=== PATIENT | female | born 1945 | race Caucasian/White ===

== ENCOUNTER 2017-11-12 13:34 | Inpatient (IN) | payer OTHER, MEDICAID ==
[~2017-11-12] VITALS: Ht 165.1 cm; Wt 133.4 kg
[~2017-11-12 13:34] MED LIST: DILTIAZEM HCL 60 MG TABLET PO SCH
[2017-11-12] MEDS ORDERED: FUROSEMIDE (13:46)
[2017-11-12] MEDS ORDERED: LIPITOR (13:46)
[2017-11-12] MEDS ORDERED: CARVEDILOL (13:46)
[2017-11-12] MEDS ORDERED: AMLODIPINE (13:46)
[2017-11-12] MEDS ORDERED: JANUVIA (13:46)
[2017-11-12] MEDS ORDERED: DILTIAZEM HCL 25 MG IV ONE ×2 (14:10→14:37)
[2017-11-12] MEDS ORDERED: DILTIAZEM HCL 25 MG IV IV ONE ×2 (14:15→14:30)
[2017-11-12 14:22] LABS: BASOPHILS % (AUTO) 0.3 % (0.0-2.0); EOSINOPHILS # (AUTO) 0.1 K/uL (0.0-0.7); EOSINOPHILS % (AUTO) 0.6 % (0.0-7.0); HEMATOCRIT 37.4 % (31.2-41.9); HEMOGLOBIN 12.5 g/dL (10.9-14.3); LYMPHOCYTES # (AUTO) 2.4 K/uL (20.0-40.0); LYMPHOCYTES % (AUTO) 20.6 % (20.5-51.5); MEAN CORPUSCULAR HEMOGLOBIN 29.8 uug (24.7-32.8); MEAN CORPUSCULAR HGB CONC 34 g/dL (32.3-35.6); MEAN CORPUSCULAR VOLUME 88.7 fL (75.5-95.3); MONOCYTES # (AUTO) 0.6 K/uL (2.0-10.0); MONOCYTES % (AUTO) 5.2 % (0.0-11.0); NEUTROPHILS # (AUTO) 8.5 K/uL (1.8-8.9); NEUTROPHILS % (AUTO) 73.3 % (38.5-71.5); PLATELET COUNT (AUTO) 244 K/uL (179-408); RED BLOOD CELL COUNT(AUTO) 4.21 MIL/uL (3.63-4.92); WHITE BLOOD COUNT (AUTO) 11.6 K/uL (3.8-11.8)
[2017-11-12 14:44] LABS: BILIRUBIN,DIRECT 0.1 mg/dL (0.0-0.2); BILIRUBIN,TOTAL 0.4 mg/dL (0.2-1.0); TOTAL PROTEIN, SERUM 7.3 g/dL (6.4-8.2)
[2017-11-12] MEDS ORDERED: FUROSEMIDE 20 MG/2 ML VIAL IV ONE (15:15)
[2017-11-12] MEDS ORDERED: POT CHLORIDE/POT BICARB/CIT AC 25 MEQ TABLET.EFF PO ONE (15:15)
[2017-11-12] MEDS ORDERED: FUROSEMIDE 20 MG/2 ML VIAL ONE (15:22)
[2017-11-12] MEDS ORDERED: POTASSIUM BICARBONATE/CIT AC 25 MEQ TABLET.EFF ONE (15:22)
[2017-11-12] MEDS ORDERED: HYDROCODONE/APAP 5-325MG TABLET PO PRN (18:30)
[2017-11-12] MEDS ORDERED: ACETAMINOPHEN 325 MG TABLET PO PRN (18:30)
[2017-11-12] MEDS ORDERED: MORPHINE SULFATE 2 MG/1 ML DISP.SYRIN IV PRN (18:30)
[2017-11-12] MEDS ORDERED: MAGNESIUM HYDROXIDE 30 ML LIQUID UDC PO PRN (18:30)
[2017-11-12] MEDS ORDERED: INSULIN REGULAR, HUMAN 300 UNIT/3 ML VIAL SQ PRN (18:30)
[2017-11-12] MEDS ORDERED: DEXTROSE 50% 50 ML DISP.SYRIN IV PRN (18:30)
[2017-11-12] MEDS ORDERED: ZOLPIDEM 5 MG TABLET PO PRN (18:30)
[2017-11-12] MEDS ORDERED: INSULIN REGULAR, HUMAN 300 UNITS/3 ML VIAL SQ PRN (18:30)
[2017-11-12] MEDS ORDERED: MORPHINE SULFATE 4 MG/1 ML DISP.SYRIN IV PRN (18:45)
[2017-11-12] MEDS: MAGNESIUM SULFATE/D5W 100 ML IV SCH ×2 (18:53→20:00)
[2017-11-12] MEDS ORDERED: RIVAROXABAN 10 MG TABLET PO SCH (19:00)
[2017-11-12 19:34] VITALS: BP 119/68
[2017-11-12] MEDS ORDERED: DILTIAZEM HCL 25 MG IV IV STA (19:41)
[2017-11-12] MEDS ORDERED: DILTIAZEM HCL 60 MG TABLET PO STA (19:41)
[2017-11-12] MEDS: DOCUSATE SODIUM 100 MG CAPSULE PO SCH (20:00)
[2017-11-12] MEDS ORDERED: RIVAROXABAN 15 MG TABLET PO SCH (20:00)
[2017-11-12] MEDS: ATORVASTATIN 20 MG TABLET PO SCH (20:00)
[2017-11-12] MEDS ORDERED: CARV12.5 PO (20:16)
[2017-11-12] MEDS ORDERED: AMLO5TAB2 PO (20:16)
[2017-11-12] MEDS: FUROSEMIDE 20 MG/2 ML VIAL IV SCH (20:17)
[2017-11-12] MEDS ORDERED: ATOR40TA PO (20:19)
[2017-11-12] MEDS ORDERED: SITA50TA PO (20:19)
[2017-11-12] MEDS ORDERED: OMEP20CA10 PO (20:20)
[2017-11-12] MEDS ORDERED: WARF4TAB72 PO (20:21)
[2017-11-12 20:33] VITALS: BP 119/68
[2017-11-12] MEDS ORDERED: BLOOD SUGAR DIAGNOSTIC 1 EACH STRIP VI SCH (21:00)
[2017-11-12 21:03] VITALS: BP 130/70
[2017-11-13] VITALS (7 sets, daily range): BP systolic 112–170; BP diastolic 58–91
[2017-11-13] MEDS ORDERED: ENALAPRILAT DIHYDRATE INJ 2.5 MG in IV NORMAL SALINE 50 ML IV PRN (00:15)
[2017-11-13] MEDS ORDERED: DEXTROSE 50% 50 ML DISP.SYRIN IV PRN (00:30)
[2017-11-13] MEDS: PANTOPRAZOLE SODIUM 40 MG TABLET.DR PO SCH (05:54)
[2017-11-13] MEDS: DILTIAZEM HCL 60 MG TABLET PO SCH ×3 (05:54→22:12)
[2017-11-13] MEDS: BLOOD SUGAR DIAGNOSTIC 1 EACH STRIP VI SCH ×5 (06:45→20:56)
[2017-11-13 06:55] LABS: BASOPHILS % (AUTO) 0.3 % (0.0-2.0); EOSINOPHILS # (AUTO) 0.1 K/uL (0.0-0.7); EOSINOPHILS % (AUTO) 0.9 % (0.0-7.0); HEMATOCRIT 38.8 % (31.2-41.9); HEMOGLOBIN 12.8 g/dL (10.9-14.3); LYMPHOCYTES # (AUTO) 3.1 K/uL (20.0-40.0); LYMPHOCYTES % (AUTO) 29.3 % (20.5-51.5); MEAN CORPUSCULAR HEMOGLOBIN 29.6 uug (24.7-32.8); MEAN CORPUSCULAR HGB CONC 33 g/dL (32.3-35.6); MEAN CORPUSCULAR VOLUME 89.7 fL (75.5-95.3); MONOCYTES # (AUTO) 0.7 K/uL (2.0-10.0); MONOCYTES % (AUTO) 6.6 % (0.0-11.0); NEUTROPHILS # (AUTO) 6.8 K/uL (1.8-8.9); NEUTROPHILS % (AUTO) 62.9 % (38.5-71.5); PLATELET COUNT (AUTO) 245 K/uL (179-408); RED BLOOD CELL COUNT(AUTO) 4.32 MIL/uL (3.63-4.92); WHITE BLOOD COUNT (AUTO) 10.7 K/uL (3.8-11.8)
[2017-11-13 07:08] LABS: BILIRUBIN,TOTAL 0.7 mg/dL (0.2-1.0); CREATININE 0.8 mg/dL (0.6-1.3); PHOSPHOROUS 2.9 mg/dL (2.5-4.9); POTASSIUM 3.1 mmol/L (3.5-5.1); TOTAL PROTEIN, SERUM 7.2 g/dL (6.4-8.2)
[2017-11-13] MEDS: FUROSEMIDE 20 MG/2 ML VIAL IV SCH ×2 (08:15→20:53)
[2017-11-13] MEDS: LINAGLIPTIN 5 MG TABLET PO SCH (08:22)
[2017-11-13] MEDS: INSULIN REGULAR, HUMAN 300 UNIT/3 ML VIAL SQ PRN ×3 (08:22→20:58)
[2017-11-13] MEDS ORDERED: SITAGLIPTIN PHOSPHATE 50 MG TABLET PO SCH (09:00)
[2017-11-13] MEDS ORDERED: POTASSIUM CHLORIDE 20 MEQ TAB.PRT.SR PO ONE (13:00)
[2017-11-13] MEDS: DOCUSATE SODIUM 100 MG CAPSULE PO SCH (20:51)
[2017-11-13] MEDS: ATORVASTATIN 20 MG TABLET PO SCH (20:51)
[2017-11-13] MEDS: METOPROLOL TARTRATE 25 MG TABLET PO SCH (20:52)
[2017-11-14] VITALS (7 sets, daily range): BP systolic 123–161; BP diastolic 67–92
[2017-11-14] MEDS: DILTIAZEM HCL 60 MG TABLET PO SCH (06:00)
[2017-11-14] MEDS: PANTOPRAZOLE SODIUM 40 MG TABLET.DR PO SCH (06:00)
[2017-11-14] MEDS: BLOOD SUGAR DIAGNOSTIC 1 EACH STRIP VI SCH ×4 (06:38→20:20)
[2017-11-14] MEDS: INSULIN REGULAR, HUMAN 300 UNIT/3 ML VIAL SQ PRN ×4 (08:09→20:23)
[2017-11-14] MEDS: FUROSEMIDE 20 MG/2 ML VIAL IV SCH ×3 (08:11→20:21)
[2017-11-14] MEDS: LINAGLIPTIN 5 MG TABLET PO SCH (08:11)
[2017-11-14] MEDS: METOPROLOL TARTRATE 25 MG TABLET PO SCH (08:11)
[2017-11-14 09:10] LABS: PHOSPHOROUS 3.2 mg/dL (2.5-4.9); POTASSIUM 3.8 mmol/L (3.5-5.1)
[2017-11-14] MEDS ORDERED: POTASSIUM CHLORIDE 20 MEQ TAB.PRT.SR PO ONE (11:45)
[2017-11-14] MEDS ORDERED: DILTIAZEM HCL CD 240 MG CAP.SR.24H PO SCH (11:45)
[2017-11-14] MEDS: METOPROLOL TARTRATE 50 MG TABLET PO SCH (20:21)
[2017-11-14] MEDS: DOCUSATE SODIUM 100 MG CAPSULE PO SCH (20:21)
[2017-11-14] MEDS: ATORVASTATIN 20 MG TABLET PO SCH (20:21)
[2017-11-14] MEDS ORDERED: METOPROLOL TARTRATE 25 MG TABLET PO SCH (21:00)
[2017-11-15] VITALS: BP 130/77
[2017-11-15 04:00] VITALS: BP 118/74
[2017-11-15] MEDS: PANTOPRAZOLE SODIUM 40 MG TABLET.DR PO SCH (06:17)
[2017-11-15] MEDS: BLOOD SUGAR DIAGNOSTIC 1 EACH STRIP VI SCH ×2 (06:36→12:20)
[2017-11-15] MEDS: LINAGLIPTIN 5 MG TABLET PO SCH (08:33)
[2017-11-15] MEDS: METOPROLOL TARTRATE 50 MG TABLET PO SCH (08:34)
[2017-11-15] MEDS: INSULIN REGULAR, HUMAN 300 UNIT/3 ML VIAL SQ PRN ×2 (08:38→12:18)
[2017-11-15] MEDS ORDERED: LINAGLIPTIN 5 MG TABLET PO SCH (09:00)
[2017-11-15] MEDS ORDERED: DILTIAZEM HCL CD 180 MG CAP.SR.24H PO SCH (09:00)
[2017-11-15] MEDS ORDERED: DILTIAZEM HCL CD 240 MG CAP.SR.24H PO SCH (09:00)
[2017-11-15] MEDS ORDERED: FUROSEMIDE 40 MG TABLET PO SCH (09:00)
[2017-11-15 11:44] VITALS: BP 119/74
[2017-11-15] MEDS ORDERED: WARFARIN SODIUM 5 MG TABLET PO ONE (12:17)
[2017-11-15] MEDS ORDERED: ATOR20TA PO (12:37)
[2017-11-15] MEDS ORDERED: FURO-152 PO (12:37)
[2017-11-15] MEDS ORDERED: DILT180C66 PO (12:37)
[2017-11-15] MEDS ORDERED: FURO-151 PO (12:37)
[2017-11-15] MEDS ORDERED: POTA20TA10 PO (12:43)
[2017-11-15 15:40] VITALS: BP 119/74
[2017-11-16] MEDS ORDERED: COUMADIN VARIABLE DOSE REMINDE XX SCH (17:00)
== END 2017-11-15 14:45 | disposition home or self-care (01) | DRG 308 ==
LOC: ER 13:34 → TELE 15:45 → MED 11-15 09:20
PROVIDERS: ADMIT Internal Medicine; ATTEND Internal Medicine
DX: I48.2 Chronic atrial fibrillation (principal); I50.33 Acute on chronic diastolic (congestive) heart failure; E44.0 Moderate protein-calorie malnutrition; D68.59 Other primary thrombophilia; E11.65 Type 2 diabetes mellitus with hyperglycemia; E66.01 Morbid (severe) obesity due to excess calories; E83.42 Hypomagnesemia; Z68.42 Body mass index [BMI] 45.0-49.9, adult; Z86.74 Personal history of sudden cardiac arrest; I11.0 Hypertensive heart disease with heart failure; Z79.01 Long term (current) use of anticoagulants; Z79.84 Long term (current) use of oral hypoglycemic drugs; Z95.810 Presence of automatic (implantable) cardiac defibrillator; Z90.710 Acquired absence of both cervix and uterus; I34.0 Nonrheumatic mitral (valve) insufficiency; E87.6 Hypokalemia; E78.5 Hyperlipidemia, unspecified; Z90.49 Acquired absence of other specified parts of digestive tract
CPT/HCPCS: 36415; 70030-TC; 71045; 83735; 84100; 84443; 85025; 85610; 85730; 93005; 93307; A4663; J1815; J1940; J3475; J3490; J7040

== ENCOUNTER 2022-02-17 00:54 | Inpatient (IN) | payer OTHER ==
[~2022-02-17] VITALS: Ht 165.1 cm; Wt 99.8 kg
[~2022-02-17 00:54] MED LIST changes: +ATOR20TA PO; +CARV12.5 PO; +DILT180C66 PO; -DILTIAZEM HCL 60 MG TABLET PO SCH; +FURO-151 PO; +FURO-152 PO; +OMEP20CA15 PO; +POTA-194 PO; +SITA50TA PO; +WARF4TAB72 PO
[2022-02-17] MEDS ORDERED: FUROSEMIDE 20 MG/2 ML VIAL IVP ONE (01:00)
[2022-02-17] MEDS ORDERED: NITROGLYCERIN OINT 1 GM PACKET TP ONE ×2 (01:00→01:22)
[2022-02-17 01:22] LABS: HEMATOCRIT 33.1 % (31.2-41.9); MEAN CORPUSCULAR HEMOGLOBIN 30.7 uug (24.7-32.8); MEAN CORPUSCULAR VOLUME 93.3 fL (75.5-95.3); PLATELET COUNT (AUTO) 244 K/uL (179-408)
[2022-02-17] MEDS ORDERED: FUROSEMIDE 40 MG/4 ML VIAL ONE (01:22)
[2022-02-17 01:26] LABS: CARBON DIOXIDE 29 mmol/L (21-32); CHLORIDE 102 mmol/L (98-107); CREATININE 2.2 mg/dL (0.6-1.3); GLUCOSE 214 mg/dL (74-106); POTASSIUM 3.4 mmol/L (3.5-5.1); UREA NITROGEN, BLOOD 43 mg/dL (7-18)
[2022-02-17 01:34] LABS: ALANINE AMINOTRANSFERASE 41 U/L (14-59); ALKALINE PHOSPHATASE 90 U/L (50-136); ASPARTATE AMINOTRANSFERASE 36 U/L (15-37); BILIRUBIN,DIRECT 0.3 mg/dL (0.0-0.2); BILIRUBIN,TOTAL 0.9 mg/dL (0.2-1.0); TOTAL PROTEIN, SERUM 7.2 g/dL (6.4-8.2)
[2022-02-17] MEDS ORDERED: ASPIRIN 81 MG TAB.CHEW ONE (01:44)
[2022-02-17] MEDS ORDERED: POTASSIUM BICARBONATE/CIT AC 25 MEQ TABLET.EFF PO ONE (01:45)
[2022-02-17] MEDS ORDERED: ENOXAPARIN SODIUM 100 MG/ML DISP.SYRIN SQ ONE ×2 (01:45)
[2022-02-17] MEDS ORDERED: ENOXAPARIN SODIUM 30 MG/0.3 ML DISP.SYRIN ONE (01:45)
[2022-02-17] MEDS ORDERED: ASPIRIN 81 MG TAB.CHEW PO ONE (01:45)
[2022-02-17] MEDS ORDERED: POTASSIUM BICARBONATE/CIT AC 25 MEQ TABLET.EFF ONE (01:46)
--- NOTE | 2022-02-17 02:00 | NUR ---
pt states she takes eliquis 2 times daily. lovenox injection has been cancelled per MD order.
[2022-02-17] MEDS ORDERED: MAGNESIUM SULFATE/D5W 100 ML IV SCH (02:30)
[2022-02-17] MEDS ORDERED: MAGNESIUM SULFATE/D5W 100 ML ONE (02:31)
[2022-02-17] MEDS ORDERED: LORAZEPAM 0.5 MG TABLET ONE (03:09)
[2022-02-17] MEDS ORDERED: LORAZEPAM 0.5 MG TABLET PO ONE (03:15)
--- NOTE | 2022-02-17 04:46 | NUR ---
Called [facility] for panel call.
[2022-02-17] MEDS ORDERED: FUROSEMIDE 40 MG/4 ML VIAL IV SCH (05:00)
[2022-02-17] MEDS ORDERED: DEXTROSE 50% 50 ML DISP.SYRIN IV PRN (05:00)
[2022-02-17] MEDS ORDERED: MORPHINE SULFATE 2 MG/1 ML DISP.SYRIN IV PRN (05:00)
[2022-02-17] MEDS ORDERED: ALBUTEROL SULFATE 8 GM HFA.AER.AD IH PRN (05:00)
--- NOTE | 2022-02-17 06:27 | NUR ---
Report given to Hany RODGERS.
--- NOTE | 2022-02-17 07:04 | NUR ---
[facility]
--- NOTE | 2022-02-17 07:45 | NUR ---
0705 RECEIVED PATIENT FROM ED. 76 Y/O F. AOX4. CHIEF COMPLAIN FROM ED IS SOB. ADMITTING DIAGNOSIS IS CHF. ON 2L/MIN NC SATURATING AT 95-99%. RIGHT IV 20G AC PATENT AND INTACT. PATIENT IS A LITTLE ANXIOUS BUT OTHERWISE IS OKAY. PATIENT CAN AMBULATE WITH ASSISTANCE. RIGHT LEG WEAKNESS NOTED. PATIENT HAVE LEFT AICD.
[2022-02-17] MEDS: ALBUTEROL SULFATE 2.5 MG/3 ML NEBU NEB PRN ×2 (07:51→12:53)
[2022-02-17] MEDS: BLOOD SUGAR DIAGNOSTIC 1 EACH STRIP VI SCH ×4 (08:00→20:33)
[2022-02-17] MEDS ORDERED: ENOXAPARIN SODIUM 120 MG/0.8 ML SYRINGE SQ ONE (08:00)
[2022-02-17 08:02] VITALS: BP 147/100
[2022-02-17] MEDS: FLUTICASONE/VILANTEROL 1 EACH BLST.W.DEV INH SCH (08:06)
[2022-02-17] MEDS: FUROSEMIDE 40 MG/4 ML VIAL IV SCH ×2 (08:06→20:27)
[2022-02-17] MEDS: INSULIN REGULAR, HUMAN 300 UNIT/3 ML VIAL SQ PRN ×2 (08:09→17:58)
--- NOTE | 2022-02-17 09:45 | NUR ---
Pt eating breakfast with HOB elevated. PT calling for help and stating " I have a canela stuck on my throat." Pt very anxious and hyperventilating. Instructed pt to have her chin down and swallow some water. after intervention pt states that the canela "went down." Pt more calm afterwards.
[2022-02-17 12:00] VITALS: BP 152/108
[2022-02-17] MEDS ORDERED: CARV25TA PO (13:25)
[2022-02-17] MEDS ORDERED: APIX5TAB PO (13:25)
[2022-02-17] MEDS ORDERED: FURO20TA4 PO (13:51)
[2022-02-17] MEDS ORDERED: AMLO10TA59 PO (13:51)
[2022-02-17] MEDS ORDERED: ASPI-1420 PO (13:51)
[2022-02-17] MEDS ORDERED: BUME1TAB8 PO (13:51)
[2022-02-17] MEDS ORDERED: SITA50TA PO (13:51)
[2022-02-17] MEDS ORDERED: LORA-259 PO (13:55)
[2022-02-17] MEDS ORDERED: AMIO200T5 PO (15:40)
[2022-02-17 16:00] VITALS: BP 125/83
[2022-02-17] MEDS: ONDANSETRON 4 MG/2 ML VIAL IV PRN ×2 (17:42→18:17)
[2022-02-17 20:00] VITALS: BP 140/73
[2022-02-17] MEDS: INSULIN REGULAR, HUMAN 300 UNITS/3 ML VIAL SQ PRN (20:35)
--- NOTE | 2022-02-18 00:03 | NUR ---
Patient noted with elevated BP, and showing lots of anxiety, notify Josef Mock with order of ativan 1mg po q8 prn for anxiety.
[2022-02-18] MEDS ORDERED: LORAZEPAM 1 MG TABLET PO PRN (00:15)
--- NOTE | 2022-02-18 00:28 | NUR ---
Patient refused the full face CPAP, prefer the CPAP from home, explained that we dont have the same kind of CPAP, will notify [employer] in am, Patient agreed to have CPAP start tomorrow.
[2022-02-18 04:18] VITALS: BP 142/91
[2022-02-18] MEDS: BLOOD SUGAR DIAGNOSTIC 1 EACH STRIP VI SCH ×4 (06:09→20:52)
[2022-02-18 06:15] LABS: HEMATOCRIT 32.9 % (31.2-41.9); MEAN CORPUSCULAR HEMOGLOBIN 30.9 uug (24.7-32.8); MEAN CORPUSCULAR VOLUME 92.7 fL (75.5-95.3); PLATELET COUNT (AUTO) 213 K/uL (179-408)
--- NOTE | 2022-02-18 06:16 | NUR ---
Patient alert oriented, no sob no chest pain, tele monitor A fib, no complain of pain, BP was 147/105, sat wnl, no complain of pain, asymptomatic, patient has episode of anxiety Ativan 1mg po effective current BP 142/91, voided moderate amount of urine, yellow color urine, cont to monitor.
[2022-02-18 06:47] LABS: ALANINE AMINOTRANSFERASE 30 U/L (14-59); ALKALINE PHOSPHATASE 86 U/L (50-136); ASPARTATE AMINOTRANSFERASE 14 U/L (15-37); BILIRUBIN,TOTAL 1.1 mg/dL (0.2-1.0); CARBON DIOXIDE 33 mmol/L (21-32); CHLORIDE 102 mmol/L (98-107); CREATININE 1.9 mg/dL (0.6-1.3); GLUCOSE 103 mg/dL (74-106); PHOSPHOROUS 4.4 mg/dL (2.5-4.9); POTASSIUM 3.3 mmol/L (3.5-5.1); UREA NITROGEN, BLOOD 44 mg/dL (7-18)
[2022-02-18 07:41] VITALS: BP 149/102
--- NOTE | 2022-02-18 08:00 | NUR ---
RECEIVED PATIENT ON BED RESTING COMFORTABLY. NO COMPLAIN OF PAIN. AFIB ON TELE. 2L/MIN NC 98% SAT. AO X4. PATIENT VERBALIZE " SHE WAS FEELING MORE BETTER THAN YESTERDAY". NO SOB NOTED.
[2022-02-18] MEDS: FUROSEMIDE 40 MG/4 ML VIAL IV SCH (08:26)
[2022-02-18] MEDS: APIXABAN 5 MG TABLET PO SCH ×2 (08:35→20:49)
[2022-02-18] MEDS ORDERED: ENOXAPARIN SODIUM 120 MG/0.8 ML SYRINGE SQ SCH (09:00)
[2022-02-18] MEDS: FLUTICASONE/VILANTEROL 1 EACH BLST.W.DEV INH SCH (09:54)
[2022-02-18] MEDS ORDERED: POTASSIUM CHLORIDE 10 MEQ TAB.PRT.SR PO ONE (10:30)
[2022-02-18] MEDS: INSULIN REGULAR, HUMAN 300 UNIT/3 ML VIAL SQ PRN ×2 (11:42→16:29)
--- NOTE | 2022-02-18 11:50 | NUR ---
PATIENT ACCUCHECK 288. GAVE 9 UNITS OF INSULIN PER SLIDING SCALE.
[2022-02-18] MEDS: AMIODARONE HCL 200 MG TABLET PO SCH (13:57)
[2022-02-18] MEDS ORDERED: CARVEDILOL 25 MG TABLET PO ONE (14:00)
--- NOTE | 2022-02-18 14:04 | NUR ---
GAVED INITIAL DOSE OF COREG AT 1404
[2022-02-18] MEDS: CARVEDILOL 25 MG TABLET PO SCH (17:00)
--- NOTE | 2022-02-18 18:29 | NUR ---
PATIENT IS SLEEPING AND RESTING WELL. NO EPISODE OF ANXIETY NOTED. STIIL ON 2L/MIN NC.
[2022-02-18 19:00] VITALS: BP 99/49
--- NOTE | 2022-02-18 19:30 | NUR ---
Received patient in bed, alert oriented, no sob no chest pain, tele monitor V pacing, no complain of pain, on 2 liters oxygen sat wnl, cont to monitor.
[2022-02-18] MEDS: INSULIN REGULAR, HUMAN 300 UNITS/3 ML VIAL SQ PRN (20:50)
[2022-02-19] VITALS: BP 134/67
[2022-02-19 04:26] VITALS: BP 133/82
--- NOTE | 2022-02-19 06:14 | NUR ---
Patient awake, no sob no chest pain, tele monitor v pacing and A fib no complain of pain, BP stable, cont to monitor.
[2022-02-19] MEDS: BLOOD SUGAR DIAGNOSTIC 1 EACH STRIP VI SCH ×4 (06:21→20:45)
[2022-02-19 07:08] LABS: HEMATOCRIT 31.9 % (31.2-41.9); MEAN CORPUSCULAR HEMOGLOBIN 31.6 uug (24.7-32.8); MEAN CORPUSCULAR VOLUME 93.3 fL (75.5-95.3); PLATELET COUNT (AUTO) 211 K/uL (179-408)
[2022-02-19 07:34] LABS: THYROID STIMULATING HORMONE 1.503 mIU/mL (0.358-3.740)
[2022-02-19 07:35] LABS: ALANINE AMINOTRANSFERASE 30 U/L (14-59); ALKALINE PHOSPHATASE 79 U/L (50-136); ASPARTATE AMINOTRANSFERASE 19 U/L (15-37); BILIRUBIN,TOTAL 0.9 mg/dL (0.2-1.0); CARBON DIOXIDE 35 mmol/L (21-32); CHLORIDE 102 mmol/L (98-107); CHOLESTEROL 154 mg/dL (<200); CREATININE 2.1 mg/dL (0.6-1.3); GLUCOSE 117 mg/dL (74-106); HDL CHOLESTEROL 49 mg/dL (40-60); MAGNESIUM 2.1 mg/dL (1.8-2.4); PHOSPHOROUS 4.4 mg/dL (2.5-4.9); POTASSIUM 4.3 mmol/L (3.5-5.1); TOTAL PROTEIN, SERUM 6.9 g/dL (6.4-8.2); TRIGLYCERIDES 65 MG/DL (30-150); UREA NITROGEN, BLOOD 45 mg/dL (7-18)
[2022-02-19 08:00] VITALS: BP 122/72
[2022-02-19] MEDS: FLUTICASONE/VILANTEROL 1 EACH BLST.W.DEV INH SCH (08:48)
[2022-02-19] MEDS: ASPIRIN EC 81 MG TABLET.DR PO SCH (08:59)
[2022-02-19] MEDS: AMIODARONE HCL 200 MG TABLET PO SCH (08:59)
[2022-02-19] MEDS: CARVEDILOL 25 MG TABLET PO SCH ×2 (08:59→17:29)
[2022-02-19] MEDS ORDERED: FUROSEMIDE 40 MG/4 ML VIAL IV SCH (09:00)
[2022-02-19] MEDS: APIXABAN 5 MG TABLET PO SCH ×2 (09:05→20:45)
[2022-02-19 11:30] VITALS: BP 131/68
[2022-02-19] MEDS: INSULIN REGULAR, HUMAN 300 UNIT/3 ML VIAL SQ PRN ×2 (12:43→17:32)
[2022-02-19] MEDS: LORAZEPAM 1 MG TABLET PO PRN ×2 (14:52→23:48)
--- NOTE | 2022-02-19 14:56 | NUR ---
Received patient lying in bed,awake alert oriented, no chest pain, tele monitor A fib, no complain of pain, sat 99%,on O2 via N/C no complain of pain, asymptomatic, patient has episode of anxiety C/O saying I can't breath.HOB kept elevated Ativan 1mg PO given as ordered effective. voided moderate amount of urine, yellow color urine,with Pure wick in place . will continue to monitor closely. Safety measure in place bed in low position, bed alarm on, call light at reach .
[2022-02-19 16:00] VITALS: BP 132/76
[2022-02-19 20:00] VITALS: BP 120/66
--- NOTE | 2022-02-19 20:30 | NUR ---
Patient alert oriented, no sob no chest pain, tele monitor v pacing, a fib, no complain of pain, turn and reposition, call light within reach, cont to monitor.
--- NOTE | 2022-02-19 23:55 | NUR ---
Patient awake with episode of uneasy, anxiety unable to fall asleep, request ativan po for anxiety, with help after one hour, cont to monitor.
[2022-02-20] VITALS: BP 145/89
[2022-02-20 04:00] VITALS: BP 151/88
--- NOTE | 2022-02-20 04:27 | NUR ---
Patient alert, no complain of pain, kept clean and dry, no sob no chest pain, V pacing and A fib on tele, sat wnl, cont to monitor.
[2022-02-20] MEDS: BLOOD SUGAR DIAGNOSTIC 1 EACH STRIP VI SCH ×4 (05:29→21:45)
[2022-02-20 08:10] LABS: HEMATOCRIT 31.6 % (31.2-41.9); MEAN CORPUSCULAR HEMOGLOBIN 31.6 uug (24.7-32.8); MEAN CORPUSCULAR VOLUME 94.6 fL (75.5-95.3); PLATELET COUNT (AUTO) 196 K/uL (179-408)
[2022-02-20 08:16] LABS: ALANINE AMINOTRANSFERASE 26 U/L (14-59); ALKALINE PHOSPHATASE 78 U/L (50-136); ASPARTATE AMINOTRANSFERASE 15 U/L (15-37); BILIRUBIN,TOTAL 0.9 mg/dL (0.2-1.0); CARBON DIOXIDE 32 mmol/L (21-32); CHLORIDE 101 mmol/L (98-107); GLUCOSE 136 mg/dL (74-106); MAGNESIUM 2.1 mg/dL (1.8-2.4); PHOSPHOROUS 4.2 mg/dL (2.5-4.9); POTASSIUM 3.8 mmol/L (3.5-5.1); TOTAL PROTEIN, SERUM 6.9 g/dL (6.4-8.2); UREA NITROGEN, BLOOD 48 mg/dL (7-18)
[2022-02-20] MEDS: APIXABAN 5 MG TABLET PO SCH ×2 (09:05→20:19)
[2022-02-20] MEDS: ASPIRIN EC 81 MG TABLET.DR PO SCH (09:05)
[2022-02-20] MEDS: CARVEDILOL 25 MG TABLET PO SCH ×2 (09:11→17:13)
[2022-02-20] MEDS: AMIODARONE HCL 200 MG TABLET PO SCH (09:11)
[2022-02-20] MEDS: FLUTICASONE/VILANTEROL 1 EACH BLST.W.DEV INH SCH (09:30)
[2022-02-20] MEDS: INSULIN REGULAR, HUMAN 300 UNIT/3 ML VIAL SQ PRN ×3 (11:40→20:22)
[2022-02-20 12:00] VITALS: BP 132/84
[2022-02-20] MEDS: ALBUTEROL SULFATE 2.5 MG/3 ML NEBU NEB PRN ×3 (12:07→20:37)
[2022-02-20] MEDS: LORAZEPAM 1 MG TABLET PO PRN ×2 (14:28→21:45)
[2022-02-20 15:55] VITALS: BP 143/88
[2022-02-20 17:35] LABS: *BILIRUBIN,URIN NEGATIVE (NEGATIVE); *CLARITY,URINE CLEAR (CLEAR); *COLOR,URINE YELLOW (YELLOW); *KETONES,URINE NEGATIVE (NEGATIVE); *UROBILINOGEN,URINE 0.2 E.U./dl (NORMAL); LEUKOCYTE ESTERASE ,URINE NEGATIVE (NEGATIVE); NITRITE, URINE NEGATIVE (NEGATIVE); PH,URINE 5.5 (5.0-8.0); UGLUCOSE NEGATIVE (NEGATIVE)
[2022-02-20 17:41] LABS: *CREATININE,URINE 137.7 mg/dL (30-125); *URINE TOTAL PROTEIN RANDOM 160.8 mg/dL (<150/24HR)
[2022-02-20 17:44] LABS: *BLOOD, URINE TRACE (NEGATIVE)
[2022-02-20 18:27] LABS: BACTERIA,URINE NONE SEEN /HPF (NONE SEEN); RBC,URINE 0-3 /HPF (0-3); SQUAMOUS EPITHELIAL CELL,UR NONE SEEN /HPF (NONE SEEN)
[2022-02-20 18:29] LABS: WBC,URINE 0-3 /HPF (0-3)
[2022-02-20 20:00] VITALS: BP 130/83
[2022-02-20] MEDS: ACETAMINOPHEN 325 MG TABLET PO PRN (21:45)
[2022-02-21] VITALS: BP 134/91
[2022-02-21 04:00] VITALS: BP 165/101
[2022-02-21] MEDS: hydrALAZINE HCL 20 MG/1 ML VIAL IV PRN (04:29)
[2022-02-21] MEDS: LORAZEPAM 1 MG TABLET PO PRN (04:29)
[2022-02-21 06:00] VITALS: BP 145/65
--- NOTE | 2022-02-21 06:00 | NUR ---
Patient rested well in between care; periods of being very anxious and SOB; HHN given per RT and ativan given orally; will continue to monitor.
[2022-02-21 06:31] LABS: MEAN CORPUSCULAR HEMOGLOBIN 31.5 uug (24.7-32.8); MEAN CORPUSCULAR VOLUME 92.7 fL (75.5-95.3); PLATELET COUNT (AUTO) 198 K/uL (179-408)
[2022-02-21] MEDS: BLOOD SUGAR DIAGNOSTIC 1 EACH STRIP VI SCH ×4 (06:37→21:22)
[2022-02-21 06:51] LABS: CARBON DIOXIDE 31 mmol/L (21-32); CHLORIDE 100 mmol/L (98-107); CREATININE 1.9 mg/dL (0.6-1.3); GLUCOSE 119 mg/dL (74-106); MAGNESIUM 1.9 mg/dL (1.8-2.4); POTASSIUM 3.6 mmol/L (3.5-5.1); UREA NITROGEN, BLOOD 50 mg/dL (7-18)
[2022-02-21] MEDS: GLIMEPIRIDE 2 MG TABLET PO SCH (08:57)
[2022-02-21] MEDS: ASPIRIN EC 81 MG TABLET.DR PO SCH (08:58)
[2022-02-21] MEDS: APIXABAN 5 MG TABLET PO SCH ×2 (08:59→21:18)
[2022-02-21] MEDS: AMIODARONE HCL 200 MG TABLET PO SCH (08:59)
[2022-02-21] MEDS: FLUTICASONE/VILANTEROL 1 EACH BLST.W.DEV INH SCH (08:59)
[2022-02-21] MEDS: CARVEDILOL 25 MG TABLET PO SCH ×2 (08:59→16:22)
[2022-02-21] MEDS: FUROSEMIDE 40 MG/4 ML VIAL IV SCH ×2 (09:02→21:18)
[2022-02-21] MEDS: ACETAMINOPHEN 325 MG TABLET PO PRN (09:09)
[2022-02-21 11:03] VITALS: BP 124/65
[2022-02-21] MEDS: INSULIN REGULAR, HUMAN 300 UNIT/3 ML VIAL SQ PRN (11:26)
[2022-02-21 15:12] VITALS: BP 133/68
[2022-02-21] MEDS ORDERED: FLUT1BLS INH (15:30)
[2022-02-21] MEDS ORDERED: ALBU2.5V7 NEB (15:30)
[2022-02-21] MEDS ORDERED: ACET325T53 PO (15:30)
[2022-02-21] MEDS ORDERED: MULT-594 PO (15:30)
[2022-02-21] MEDS ORDERED: APIX5TAB PO (15:30)
[2022-02-21] MEDS ORDERED: AMLO-212 PO (15:30)
[2022-02-21] MEDS ORDERED: GLIM2TAB PO (15:30)
[2022-02-21] MEDS ORDERED: DOCU-141 PO (15:32)
[2022-02-21] MEDS ORDERED: POLY17PO4 PO (15:32)
--- NOTE | 2022-02-21 15:57 | NUR ---
Spoke to [facility] regarding patient's transfer. According to staff, patient has not been accepted. [facility] Staff to update Nawaf SALAZAR
--- NOTE | 2022-02-21 17:44 | NUR ---
Patient no longer to be discharged to [facility] due to no bed at facility. manager crisis notified.
[2022-02-21] MEDS: ALBUTEROL SULFATE 2.5 MG/3 ML NEBU NEB PRN (18:00)
--- NOTE | 2022-02-21 18:03 | NUR ---
Breathing treatment ordered. RT notified. Will endorse information to PM nurse.
--- NOTE | 2022-02-21 18:29 | NUR ---
Patient received care well throughout shift with no complaints of pain. Patient however having the need to defecate, but upon PT assessment, patient was unable to participate during today's therapy session. Bedside commode given to patient, and attempted to stand patient. Patient immediately stating they are dizzy, and refused patient from attempting any further. Patient notified to use diaper to prevent further injury. IV site intact and patent. Bed left in lowest position with call light within reach. Will endorse information to PM nurse.
[2022-02-21 20:00] VITALS: BP 127/85
[2022-02-21] MEDS ORDERED: MAGNESIUM HYDROXIDE 30 ML LIQUID UDC PO PRN (21:15)
[2022-02-21] MEDS: INSULIN REGULAR, HUMAN 300 UNITS/3 ML VIAL SQ PRN (21:22)
[2022-02-22] VITALS: BP 141/88
[2022-02-22 04:00] VITALS: BP 152/102
[2022-02-22 05:00] VITALS: BP 145/89
--- NOTE | 2022-02-22 05:08 | NUR ---
Patient rested well in between care; pt had a big BM; asssisted pt to BSC; needs attended; no c/o anxiety up to this time; will continue to monitor; continue plan of care.
[2022-02-22] MEDS: BLOOD SUGAR DIAGNOSTIC 1 EACH STRIP VI SCH ×4 (06:16→21:05)
[2022-02-22] MEDS: GLIMEPIRIDE 2 MG TABLET PO SCH (08:20)
[2022-02-22] MEDS: ASPIRIN EC 81 MG TABLET.DR PO SCH (08:20)
[2022-02-22] MEDS: FLUTICASONE/VILANTEROL 1 EACH BLST.W.DEV INH SCH (08:21)
[2022-02-22] MEDS: FUROSEMIDE 40 MG/4 ML VIAL IV SCH (08:21)
[2022-02-22] MEDS: APIXABAN 5 MG TABLET PO SCH ×2 (08:22→21:07)
[2022-02-22] MEDS: CARVEDILOL 25 MG TABLET PO SCH ×2 (08:24→16:07)
[2022-02-22] MEDS: AMIODARONE HCL 200 MG TABLET PO SCH (08:25)
[2022-02-22 08:40] LABS: HEMATOCRIT 32.5 % (31.2-41.9); MEAN CORPUSCULAR HEMOGLOBIN 32.4 uug (24.7-32.8); MEAN CORPUSCULAR VOLUME 93.2 fL (75.5-95.3); PLATELET COUNT (AUTO) 199 K/uL (179-408)
[2022-02-22 08:44] LABS: CARBON DIOXIDE 36 mmol/L (21-32); CHLORIDE 101 mmol/L (98-107); GLUCOSE 128 mg/dL (74-106); MAGNESIUM 2.4 mg/dL (1.8-2.4); POTASSIUM 3.7 mmol/L (3.5-5.1); UREA NITROGEN, BLOOD 56 mg/dL (7-18)
[2022-02-22] MEDS: LORAZEPAM 1 MG TABLET PO PRN ×2 (11:06→21:10)
[2022-02-22 11:24] VITALS: BP 133/82
[2022-02-22] MEDS: INSULIN REGULAR, HUMAN 300 UNIT/3 ML VIAL SQ PRN (11:41)
[2022-02-22] MEDS ORDERED: FUROSEMIDE 40 MG/4 ML VIAL IV ONE (15:00)
[2022-02-22 15:16] VITALS: BP 136/75
[2022-02-22] MEDS: ALBUTEROL SULFATE 2.5 MG/3 ML NEBU NEB PRN (16:47)
--- NOTE | 2022-02-22 18:25 | NUR ---
Patient received care well throughout shift, with one episode of anxiety. Medication administered. Total volume of input of 500cc/day with a total of 1800cc of output per shift. Bed left in lowest position with call light within reach. IV site patent and intact. Comfort measures provided. Will endorse information to PM nurse.
[2022-02-22 20:26] VITALS: BP 142/85
--- NOTE | 2022-02-22 20:27 | NUR ---
Pt alert and oriented. no acute respiratory distress. No complaints of pain. IV site intact and patent. Call light in reach. Left pt in lowest bed position. Will continue to monitor. Continue plan of care.
[2022-02-23 00:12] VITALS: BP 150/97
[2022-02-23 04:42] VITALS: BP 136/75
[2022-02-23] MEDS: BLOOD SUGAR DIAGNOSTIC 1 EACH STRIP VI SCH (07:07)
[2022-02-23] MEDS: GLIMEPIRIDE 2 MG TABLET PO SCH (07:50)
--- NOTE | 2022-02-23 08:00 | NUR ---
resting in bed, denies of any discomfort, no distress noted, tele- afib 80's, on 2l/nc sat at 98%, explained plan of care, verbalized understanding, safety measures in p[lace, needs attended, call light within reach
[2022-02-23] MEDS: FLUTICASONE/VILANTEROL 1 EACH BLST.W.DEV INH SCH (08:51)
[2022-02-23] MEDS: ASPIRIN EC 81 MG TABLET.DR PO SCH (08:52)
[2022-02-23] MEDS: FUROSEMIDE 40 MG TABLET PO SCH (08:52)
[2022-02-23] MEDS: APIXABAN 5 MG TABLET PO SCH ×2 (08:53→21:04)
[2022-02-23] MEDS: CARVEDILOL 25 MG TABLET PO SCH ×2 (08:53→17:41)
[2022-02-23] MEDS: AMIODARONE HCL 200 MG TABLET PO SCH (08:54)
[2022-02-23 09:45] VITALS: BP 150/94
[2022-02-23 14:03] VITALS: BP 141/84
[2022-02-23] MEDS: LORAZEPAM 1 MG TABLET PO PRN ×2 (14:16→21:54)
--- NOTE | 2022-02-23 14:17 | NUR ---
medicated with ativan i mg po for anxiety, sister at bedside
--- NOTE | 2022-02-23 15:00 | NUR ---
more relax now, no distress noted
[2022-02-23 18:15] VITALS: BP 147/98
--- NOTE | 2022-02-23 19:02 | NUR ---
resting in bed, no distress noted, call light within reach, all needs attended and met
[2022-02-23 21:02] VITALS: BP 143/91
[2022-02-24] MEDS: hydrALAZINE HCL 20 MG/1 ML VIAL IV PRN (00:25)
[2022-02-24 00:52] VITALS: BP 152/104
[2022-02-24 04:35] VITALS: BP 108/63
[2022-02-24 06:45] LABS: HEMATOCRIT 32.6 % (31.2-41.9); MEAN CORPUSCULAR HEMOGLOBIN 31.4 uug (24.7-32.8); MEAN CORPUSCULAR VOLUME 92.3 fL (75.5-95.3); PLATELET COUNT (AUTO) 188 K/uL (179-408)
[2022-02-24 07:09] LABS: ALANINE AMINOTRANSFERASE 21 U/L (14-59); ALKALINE PHOSPHATASE 75 U/L (50-136); ASPARTATE AMINOTRANSFERASE 13 U/L (15-37); BILIRUBIN,TOTAL 0.8 mg/dL (0.2-1.0); CARBON DIOXIDE 34 mmol/L (21-32); CHLORIDE 101 mmol/L (98-107); CREATININE 1.9 mg/dL (0.6-1.3); GLUCOSE 93 mg/dL (74-106); MAGNESIUM 2.2 mg/dL (1.8-2.4); PHOSPHOROUS 3.5 mg/dL (2.5-4.9); UREA NITROGEN, BLOOD 55 mg/dL (7-18)
--- NOTE | 2022-02-24 07:15 | NUR ---
RECEIVED PATIENT ON BED AWAKE. AOX4. NO SOB. IV RIGHT FA 20G INTACT AND PATENT. PATIENT JUST ASKED IF SHES GONNA BE DISCHARGED TODAY. WILL FOLLOWUP.
[2022-02-24] MEDS ORDERED: POTASSIUM CHLORIDE 10 MEQ TAB.PRT.SR PO ONE (09:30)
[2022-02-24] MEDS: ASPIRIN EC 81 MG TABLET.DR PO SCH (10:11)
[2022-02-24] MEDS: FUROSEMIDE 40 MG TABLET PO SCH (10:11)
[2022-02-24] MEDS: APIXABAN 5 MG TABLET PO SCH (10:11)
[2022-02-24] MEDS: CARVEDILOL 25 MG TABLET PO SCH (10:12)
[2022-02-24] MEDS: AMIODARONE HCL 200 MG TABLET PO SCH (10:12)
[2022-02-24] MEDS: GLIMEPIRIDE 2 MG TABLET PO SCH (10:16)
[2022-02-24] MEDS: FLUTICASONE/VILANTEROL 1 EACH BLST.W.DEV INH SCH (10:20)
--- NOTE | 2022-02-24 10:40 | NUR ---
DISCHARGE ORDERED ISSUED BY DR SANTANA. CM NOTIFIED. CM ARRANGE TRANSPO AND SNF. PT WILL GO TO [facility].
[2022-02-24 12:00] VITALS: BP 135/80
[2022-02-24] MEDS ORDERED: POTASSIUM CHLORIDE 20 MEQ TAB.PRT.SR PO ONE (12:00)
[2022-02-24 15:46] VITALS: BP 139/94
--- NOTE | 2022-02-24 16:00 | NUR ---
EDUCATE PATIENT REGARDING THE DISCHARGE SUMMARY. ALL INFO PERTINENT TO DISCHARGE WAS GIVEN TO THE PATIENT. PATIENT VERBALIZED UNDERSTANDING.
--- NOTE | 2022-02-24 16:20 | NUR ---
REPORT GIVEN TO THUY RODGERS OF [facility]. ALL PERTINENT INFO WAS GIVEN.
--- NOTE | 2022-02-24 16:35 | NUR ---
PATIENT WAS PICKUP BY THE AMB. ALL IV LINES REMOVED. VITALS WNL. NO SOB. PATIENT AMBULATE TOWARD [facility] W/ ASSISTANCE. ALL BELONGINGS ACCOUNTED FOR. DISCHARGE SUMMARY WAS GIVEN TO THE PATIENT
== END 2022-02-24 16:30 | DRG 291 ==
LOC: ER 01:02 → TELE3 06:45
PROVIDERS: ADMIT Nurse Practitioner Acute Care; ATTEND Internal Medicine
DX: I13.0 Hypertensive heart and chronic kidney disease with heart failure and stage 1 through stage 4 chronic kidney disease, or unspecified chronic kidney disease (principal); I50.43 Acute on chronic combined systolic (congestive) and diastolic (congestive) heart failure; J96.01 Acute respiratory failure with hypoxia; N17.0 Acute kidney failure with tubular necrosis; I48.20 Chronic atrial fibrillation, unspecified; D68.59 Other primary thrombophilia; Z79.01 Long term (current) use of anticoagulants; Z95.810 Presence of automatic (implantable) cardiac defibrillator; E11.65 Type 2 diabetes mellitus with hyperglycemia; E11.22 Type 2 diabetes mellitus with diabetic chronic kidney disease; E87.6 Hypokalemia; E88.09 Other disorders of plasma-protein metabolism, not elsewhere classified; I25.10 Atherosclerotic heart disease of native coronary artery without angina pectoris; F41.9 Anxiety disorder, unspecified; I25.5 Ischemic cardiomyopathy; K21.9 Gastro-esophageal reflux disease without esophagitis; M19.90 Unspecified osteoarthritis, unspecified site; N28.1 Cyst of kidney, acquired; Z79.84 Long term (current) use of oral hypoglycemic drugs; Z87.891 Personal history of nicotine dependence; Z90.49 Acquired absence of other specified parts of digestive tract; E66.01 Morbid (severe) obesity due to excess calories; Z68.36 Body mass index [BMI] 36.0-36.9, adult; I27.20 Pulmonary hypertension, unspecified; F32.A Depression, unspecified; Z74.09 Other reduced mobility; I08.3 Combined rheumatic disorders of mitral, aortic and tricuspid valves; Z86.74 Personal history of sudden cardiac arrest; E78.5 Hyperlipidemia, unspecified; N18.9 Chronic kidney disease, unspecified; Z20.822 Contact with and (suspected) exposure to COVID-19
CPT/HCPCS: 36415; 71045; 76770; 83605; 83735; 84100; 84156; 84300; 84443; 84484; 85025; 85610; 93005; 93307; 94640; 94664; 97161; A4663; G0378; J0360; J1650; J1815; J1940; J2405; J3475